=== PATIENT | female | born 1935 | race Caucasian/White ===

== ENCOUNTER 2018-10-28 11:56 | Inpatient (IN) | payer OTHER ==
[2018-10-28] VITALS (7 sets, daily range): BP systolic 128–173; BP diastolic 46–82
[~2018-10-28] VITALS: Ht 152.4 cm; Wt 65.3 kg
--- NOTE | 2018-10-28 12:45 | NUR ---
ADMISSION Received pt to room 423 via EMS as a transfer from [facility]. Pt's family members with pt. Upon admission, pt is AAO, appropriate. Documented history of dementia. Pt self reports forgetfulness. Pt able to state , current president. Stated age as "84" but corrected herself. Pt unable to recall present year. Per history obtained by pt and her daughter, pt suffered a stroke recently and has further effected pt's recall. Pt is calm, cooperative, jovial. Denies chest pain, pressure or tightness. Denies palpitations or SOB. On room air. Breath sounds are clear throughout. Abd soft - NPO for planned procedure. Arrived with [address]ga SL in place to RH - flush with NS - patent. Admission assessment/database completed. Pt oriented to room. Discussed tentative plan of care. Questions addressed.
--- NOTE | 2018-10-28 14:10 | NUR ---
INFORMED CONSENT After discussion regarding planned LHC procedure, consent form signed by pt. Family members at bedside at time of discussion, signing of consent form. According to pt and her daughter, pt does still sign her own consent forms. Pt's, family's questions invited/addressed. Pt voiced understanding of planned procedure.
--- NOTE | 2018-10-28 14:50 | NUR ---
STATUS Taken by bed to [facility] - accompanied by [employer] [employer] personnel. No complaints voiced by pt at time of transport.
--- NOTE | 2018-10-28 16:30 | NUR ---
ASSESSMENT Returned to room post procedure. AAO, appropriate. Denies pain. Right groin gauze/tegaderm drsg is clean and dry. No evidence of bleeding, oozing or hematoma. Pt aware of activity restrictions post procedure. Positioned for comfort. Needed items placed within reach. Family members at bedside. Will observe.
--- NOTE | 2018-10-28 18:00 | NUR ---
STATUS Resting quietly. No complaints voiced. Needed items, call light within reach. Will observe.
[2018-10-28] MEDS ORDERED: ISOS30TA6 PO (19:55)
[2018-10-28] MEDS ORDERED: NITR0.4T50 SL (19:55)
[2018-10-28] MEDS ORDERED: APIX5TAB PO (19:55)
[2018-10-28] MEDS ORDERED: METO25TA6 PO (19:55)
[2018-10-28] MEDS ORDERED: ATOR20TA65 PO (19:55)
[2018-10-28] MEDS: SODIUM CHLORIDE 0.9% 10 ML VIAL IVP SCH (20:08)
[2018-10-28] MEDS ORDERED: ATORVASTATIN CALCIUM 20 MG TABLET PO SCH (21:00)
[2018-10-28] MEDS ORDERED: METOPROLOL TARTRATE 25 MG TAB PO SCH (21:00)
[2018-10-28] MEDS: METOPROLOL TARTRATE 25 MG TAB PO SCH (21:27)
[2018-10-29] VITALS: BP 137/66
[2018-10-29] MEDS: SODIUM CHLORIDE 0.9% 10 ML VIAL IVP SCH
[2018-10-29 04:00] VITALS: BP 126/61
[2018-10-29 05:44] LABS: T4 (THYROXINE) 9.4 mcg/dL (4.7-13.3); THYROID STIMULATING HORMONE 1.19 uIU/mL (0.36-3.74)
[2018-10-29 08:00] VITALS: BP 126/65
[2018-10-29] MEDS ORDERED: APIXABAN 5 MG TABLET PO SCH (09:00)
[2018-10-29 11:00] VITALS: BP 112/57
[2018-10-29] MEDS: METOPROLOL TARTRATE 25 MG TAB PO SCH (11:34)
== END 2018-10-29 14:35 | disposition home or self-care (01) | DRG 287 ==
LOC: 4CH 12:31
PROVIDERS: ADMIT Internal Medicine; ATTEND Internal Medicine
PROC: 4A023N7 Measurement of Cardiac Sampling and Pressure, Left Heart, Percutaneous Approach (ICD-10-PCS; principal; 2018-10-28)
PROC: B2111ZZ Fluoroscopy of Multiple Coronary Arteries using Low Osmolar Contrast (ICD-10-PCS; 2018-10-28)
PROC: B2151ZZ Fluoroscopy of Left Heart using Low Osmolar Contrast (ICD-10-PCS; 2018-10-28)
PROC: B41F1ZZ Fluoroscopy of Right Lower Extremity Arteries using Low Osmolar Contrast (ICD-10-PCS; 2018-10-28)
DX: I25.10 Atherosclerotic heart disease of native coronary artery without angina pectoris (principal); I35.8 Other nonrheumatic aortic valve disorders; I25.2 Old myocardial infarction; Z79.01 Long term (current) use of anticoagulants; Z79.899 Other long term (current) drug therapy; Z86.73 Personal history of transient ischemic attack (TIA), and cerebral infarction without residual deficits; Z88.5 Allergy status to narcotic agent
CPT/HCPCS: 36415; 84436; 84443; 93458; C1760; C1894; G0378